=== PATIENT | female | born 1985 | race Caucasian/White ===

== ENCOUNTER 2020-06-23 13:47 | Outpatient (CLI) | payer OTHER, SELFPAY ==
[2020-06-23 14:20] LABS: Hematocrit 35.1 % (37.0-47.0); Hemoglobin 11.7 g/dL (12.0-15.0); Mean Corpuscular HGB Conc 33.3 g/dl (32-36); Mean Corpuscular Hemoglobin 30.9 pg (26-34); Mean Corpuscular Volume 92.6 fl (80-100); Mean Platelet Volume 9.2 fl (7.4-10.4); Platelet Count Result 220 k/mm3 (150-375); Red Blood Count 3.79 M/mm3 (4.2-5.4); Red Cell Distribution Width 13.2 % (11.5-14.5); White Blood Count 7.5 K/mm3 (4.5-10.0)
[2020-06-24 12:01] LABS: Rapid Plasma Reagin Non-Reactive (NonReactive)
== END 2020-06-23 13:48 | disposition home or self-care (01) ==
PROVIDERS: Visit Provider Obstetrics & Gynecology
DX: Z01.812 Encounter for preprocedural laboratory examination (principal); O34.219 Maternal care for unspecified type scar from previous cesarean delivery
CPT/HCPCS: 36415; 85027; 86592; 86850; 86900; 86901

== ENCOUNTER 2020-06-24 10:14 | Inpatient (IN) | payer OTHER, SELFPAY ==
--- NOTE | 2020-06-08 13:58 | PC.NURSE ---
VERIFIED WITH OR SCHEDULE AND PATIENT--C/S ON 06/24/20 AT 1200 PATIENT GIVEN REQUISITION FOR LAB DRAW ON 06/23/20
[2020-06-24] VITALS (46 sets, daily range): BP systolic 79–112; BP diastolic 48–82; PULSE 46–226; RESP 11–22; TEMP 36.2–36.9; O2SAT 98–100; BMI 30.2
[2020-06-24] MEDS: LACTATED RINGERS 1,000 ML 125 ML IV CONT (10:56)
--- NOTE | 2020-06-24 11:00 | LDADM ---
This patient, Saida Zapien, was admitted to Labor/Delivery/Recovery 119 on 06/24/20 at 10:14. Plans for labor, pain management and were discussed with patient. Patient/family oriented to hospital policies and general routines including ID bracelet, bed and alarms, visiting hours, pain management, procedures, bathroom and other care routines, personal items, smoking policy, room service/diet and guest tray routines, security routines, and visiting hours. Patient/Family are encouraged to report perceived risks to care and to ask questions if they do not understand what they are told or what they should do. See OBIX for further documentation.
--- NOTE | 2020-06-24 12:26 | WPDANESEPPF ---
Anes - Initial Pre Proc Eval Procedure: Operation Date: 06/24/20 12:00 Proposed Procedures p Repeat Section - Nickolas Weinberg MD Date/Time: 06/24/20 12:26 Surgeon: Nickolas Weinberg MD Pre Op Diagnosis: c/s Patient Data Age: 35 Gender: F Height: 5 ft 4 in Weight: 80 kg Last Vital Signs Temp 36.9 C 06/24/20 11:23 Pulse 81 06/24/20 11:15 BP 111/71 06/24/20 11:15 Allergies Allergy/AdvReac Type Severity Reaction Status Date / Time No Known Allergies Allergy Unknown Verified 06/08/20 13:38 Home Medications Medication Instructions Recorded Confirmed Type prenat.vits,leon,[id number] 1 tablet PO DAILY 06/08/20 06/08/20 History [ #2] sertraline 25 mg PO DAILY 06/08/20 06/08/20 History Patient hx anesthesia problems: none Family hx anesthesia problems: none PMFSH Past Medical History Medical History Anxiety Family History Family History Other Unknown family medical history Social History Social History Smoking status: Never smoker Substance use: never Spiritual care concerns: No Anes - Eval Final PreProcedure Day of Procedure 06/24/20 12:26 Patient weight: overweight Heart: regular rate and rhythm Lungs: clear to auscultation Airway: Mallampati scale class II Neurological: alert and oriented Last oral intake: >/= 8 hours ASA classification: II Emergent: no Anesthetic plan: proceed Anesthesia type and monitoring: regional spinal and standard monitoring Informed Consent: The patient's anesthetic plan and its attendant risks and benefits were discussed with the patient/family/POA. Questions were solicited and answers provided to the satisfaction of the patient/family/POA.
--- NOTE | 2020-06-24 12:41 | P.HP_ITS ---
H&P: HPI History of Present Illness Date/Time: 06/24/20 12:41 35 y/o at 39 4/7 weeks here for repeat . GBS pos. Chief Complaint: Here for c section Review of Systems Review of Systems: All systems reviewed & are unremarkable except as noted in HPI and below PMFSH Past Medical History Medical History Anxiety Family History Family History Other Unknown family medical history Social History Social History Smoking status: Never smoker Substance use: never Spiritual care concerns: No Meds Home Medications and Allergies Home Medications Medication Instructions Recorded Confirmed Type prenat.vits,leon,wvp-[id number] 1 tablet PO DAILY 06/08/20 06/08/20 History [ #2] sertraline 25 mg PO DAILY 06/08/20 06/08/20 History Allergies Allergy/AdvReac Type Severity Reaction Status Date / Time No Known Allergies Allergy Unknown Verified 06/08/20 13:38 Vital Signs Vital Signs - 24 hr 06/24/20 10:36 06/24/20 10:45 06/24/20 11:01 Temperature Pulse Rate 79 79 84 Blood Pressure 112/71 111/82 101/59 L 06/24/20 11:15 06/24/20 11:23 Temperature 36.9 C Pulse Rate 81 Blood Pressure 111/71 Exam Const: Orientation/consciousness: patient oriented x3 Other: Well- developed, well-nourished female in no acute distress. Neck: Thyroid: thyroid normal Lymphatic: no lymphadenopathy noted (in neck, axilla or inguinal nodes) Resp: Effort & Inspection: normal respiratory effort Auscultation: clear to auscultation bilaterally Cardio: Rate: regular rate Rhythm: regular rhythm Heart sounds: S1 normal heart sound present and S2 normal heart sound present GI: Other: ABD: Soft, nontender, nondistended, gravid. NST good variability. TOCO: no contractions. No guarding or rebound tenderness. No hepatosplenomegaly. : General: Yes no CVA tenderness Other: Cervix closed, thick. Back/Spine/Pelvis: Back: no CVA tenderness Skin: General skin exam: normal color and no rashes or lesions noted Neuro: General: patient oriented x3 Extrem: Other: Extremities: nontender with no edema Psych: Mental Status: mental status grossly normal Affect: normal affect Assessment and Plan Assessment and plan (1) History of delivery: Code(s): Z98.891 - History of uterine scar from previous surgery Status: Acute Assessment and Plan: A: 1) IUP at 39 4/7 weeks 2) Prior , desires repeat. 3) GBS pos. P: She desires repeat . She understands risks of surgery to include risks of anesthesia, risks of pain, infection, bleeding, blood products, thromboembolic phenomena and damage to adjacent structures such as bowel, bladder, ureters, blood vessels and nerves. She understands all these risks and elects to proceed with surgery.
--- NOTE | 2020-06-24 12:46 | WPDHPUPDATE1 ---
History and Physical Update Update Date/Time: 06/24/20 12:46 History and Physical has been reviewed, including an updated exam of the patient. There are NO changes in the patient's condition. Risks, benefits, and alternatives have been discussed and questions answered. Patient agrees to proceed with procedure.
--- NOTE | 2020-06-24 13:52 | PM.OBPRVD ---
OB - Delivery Note Procedure Procedure: Procedures Operation Date: 06/24/20 12:00 <No data on this case meets the specified criteria> Repeat low transverse delivery Delivery monitor: external FHT and external uterine Specimen: Yes (cord blood) Quantitative Blood Loss (ml): 650 Anesthesia type: Spinal Disposition: PACU Complications: None Narrative: The patient was taken to the operating room where she was prepared and draped in the usual sterile fashion in dorsal supine position with a leftward tilt. She received cefazolin preoperatively. Spinal anesthesia was found to be adequate. A Pfannenstiel skin incision was made along the previous scar line and was carried through to the underlying layer of the fascia. The fascia was incised in the midline and the incision was extended laterally. The fascia was dissected free of the underlying rectus muscles. The rectus muscles were in the midline. The peritoneum was identified, tented up and entered sharply. The peritoneal incision was extended superiorly and inferiorly with good visualization of the bladder. The bladder blade was placed. The vesicouterine peritoneum was identified, tented up and entered sharply. The incision was extended laterally and the bladder flap was developed. The bladder blade was replaced. The uterus was then incised sharply in a transverse fashion along the lower uterine segment. The incision was extended laterally. The 's head was delivered atraumatically to the sterile field, followed by the body. The nose and mouth were bulb suctioned. After a delay, the cord was clamped and cut. The was handed off the field. Cord blood was collected. The placenta was removed manually and was passed off the field. The uterus was exteriorized and cleared of all clots and debris. The uterine incision was reapproximated using 0 Monocryl in a running, locked fashion. Excellent hemostasis resulted as did excellent reapproximation of the normal anatomy. The uterus, tubes and ovaries were all unremarkable. The uterus was returned the abdomen. The pelvis was irrigated copiously with warmed normal saline. Rigorous hemostasis was assured. The fascial layer was reapproximated using 0 Vicryl in a running fashion. The skin was closed with a running, subcuticular stitch of 4 0 Vicryl. Dermaflex was applied externally. Sponge, lap, needle and instrument counts were correct. The patient was taken to the recovery room in stable condition. The infant went to the nursery in stable condition. I was present and scrubbed the entire procedure. [facility] Baby Date of : 06/24/20 Time of : 13:24 Weeks of gestation at delivery: 39 Infant gender: Male Weight (pounds): 7 Weight (ounces): 13 presentation: vertex Placenta delivery description: Manual Removal and Normal Configuration cord vessel description: 3 Vessels and Delayed Cord Clamping score one minute: 9 score five minutes: 9
[2020-06-24] MEDS: OXYTOCIN 30 UNITS/NS 500 ML 30 UNITS/500 ML BAG 125 UNITS IV CONT (14:12)
[2020-06-24] MEDS: ONDANSETRON INJ 4 MG/2 ML VIAL IV PUSH (14:38)
[2020-06-24] MEDS: MORPHINE SULFATE (*CRX) 2 MG/ML INJ 3 MG IV PUSH (15:23)
--- NOTE | 2020-06-24 15:30 | PM.OBDSVD ---
DS: Admitting Diagnosis Admitting Diagnosis Admitting Diagnosis: IUP at 39 4/7 weeks Prior GBS colonization DS: Discharge Diagnosis Discharge Diagnosis (1) History of delivery: Code(s): Z98.891 - History of uterine scar from previous surgery Status: Acute (2) GBS (group B Streptococcus carrier), +RV culture, currently : Code(s): O99.820 - Streptococcus B carrier state complicating Status: Acute OB - DS: Summary OB Procedures : None OB Procedures Intrapartum: OB Procedures: : None Peripartum Data Procedures: Procedures Operation Date: 06/24/20 12:00 Actual Procedures Side Surgeon p Repeat Section Not Applicable Nickolas eWinberg MD Discharge Plan Discharge Attending physician on discharge: Nickolas Weinberg Consulting providers: Rodo Sosa Discharging Clinician: Nickolas Weinberg Patient Disposition: Home, Self-Care Activity: may shower, may drive after 2 weeks and pelvic rest Diet: regular Wound Care Instructions: incision open to air Discharge Instructions: Education: Mom and Baby Guide Given to: Mother Follow-Up: Call your delivering provider's office for an appointment to be seen in: 4 Weeks Mom and baby should come to the [facility] for the follow-up appointment. Appointment Date/Time: Saturday, June 27, 2020 at 9:00 a.m. What to expect at your follow-up visit: Blood Pressure Check Physical Assessment Call [phone] if you are unable to keep your appointment time. BREAST CARE: * Wear a snug supportive bra. * For engorgement discomfort: Breast Feeding: * Apply warm moist washcloths * Express milk as needed to relieve engorgement * Wear loose clothing * For sore nipples: * Identify correct latch-on * Apply warm moist washcloths before and after nursing * Air dry nipples after nursing * May apply Lansinoh cream to nipples ABDOMINAL INCISION: (if applicable) * Allow incision to air dry * Do NOT use lotions for powders on your incision * When showering, allow soap and water to run over the incision, but do not wash incision EPISIOTOMY/PERINEAL CARE: * Change your pad frequently throughout the day * You may take sitz baths several times a day (fill your bathtub with warm water and soak for 20 minutes.) Do NOT bathe in the water * No tub baths until seen by your physician - You may shower ACTIVITY: * Rest as much as possible. * Do not exercise or lift anything heavier than your baby (such as laundry or other children.) * Avoid stairs or driving as much as possible. * Do not put anything into the vagina. No douching, tampons, or sexual activity until seen by physician. NOTIFY PHYSICIAN IF YOU HAVE ANY QUESTIONS OR IF ANY OF THE FOLLOWING SYMPTOMS OCCUR: * If your incision becomes red, swollen, or more painful than what you have experienced in the hospital. * If your vaginal bleeding becomes foul smelling. * If your vaginal bleeding becomes more heavy than a period or if your bleeding changes from pink to bright red. However, you may pass an occasional walnut-sized clot once or twice for the first week . * If you experience a sharp, shooting pain in you calves. * If you discover a hard, reddened area on your breast or if you experience flu-like symptoms. DIET: * Eat regular, well-balanced meals. * Drink plenty of fluids daily. If , drink to thirst. Call or return if temperature above 100.4? F, increased abdominal pain, increased vaginal bleeding or any new problems. Stand Alone Forms: General Discharge Information Follow-up/Referrals: Nickolas Weinberg MD [Physician] - 4 Weeks Discharge Medications: New ibuprofen 600 mg tablet 600 mg PO Q6H PRN (Reason: cramps) Qty: 30 RF: 0 ferrous sulfate 325 mg (65 mg iron) tablet
--- NOTE | 2020-06-24 16:21 | PC.NURSE ---
Patient transferred to post room #287 via stretcher. Support person present. Oriented to unit, room, information board, rooming in, admission packet and security measures. Patient verbalizes understanding.
[2020-06-24] MEDS: diphenhydrAMINE HCl INJ 50 MG/ML VIAL 25 MG IV PUSH (17:14)
[2020-06-24] MEDS: KETOROLAC 30 MG/ML VIAL (*BKC) IV PUSH (19:52)
[2020-06-24] MEDS: DEXTROSE 5%/0.45% SOD CHL 1,000 ML 125 ML IV CONT (19:53)
[2020-06-24] MEDS: HYDROcodone/acetaminophen (*CRX) 5-325 MG TABLET 1 TAB PO (19:53)
[2020-06-24] MEDS: SIMETHICONE 80 MG TAB.CHEW PO (19:53)
[2020-06-24] MEDS: SERTRALINE HCL 25 MG TABLET PO (21:54)
[2020-06-25] MEDS: IBUPROFEN 600 MG TABLET PO ×4 (01:45→19:56)
[2020-06-25] MEDS: HYDROcodone/acetaminophen (*CRX) 10-325 MG TABLET 1 TAB PO ×4 (01:46→19:57)
[2020-06-25 03:43] VITALS: BP 104/47; PULSE 72; RESP 18; TEMP 36.8; O2SAT 98
[2020-06-25 05:39] LABS: Basophils Percent Auto 0.3 % (0.2-1.2); Eosinophils Percent Auto 0.5 % (0-4.4); Hematocrit 27.3 % (37.0-47.0); Hemoglobin 8.8 g/dL (12.0-15.0); Immature Granulocyte Absolute 0.04 K/mm3 (0.00-0.031); Immature Granulocyte Percent A 0.5 % (0-0.5); Lymphocytes Absolute Auto 1.43 K/mm3 (0.9-3.2); Lymphocytes Percent Auto 16.3 % (18.3-44.2); Mean Corpuscular HGB Conc 32.2 g/dl (32-36); Mean Corpuscular Hemoglobin 29.5 pg (26-34); Mean Corpuscular Volume 91.6 fl (80-100); Mean Platelet Volume 9.9 fl (7.4-10.4); Monocytes Absolute Auto 0.4 K/mm3 (0.1-0.6); Monocytes Percent Auto 4.5 % (2.6-8.5); Neutrophils Absolute Auto 6.8 K/mm3 (1.3-6.7); Neutrophils Percent Auto 77.9 % (45.5-73.1); Platelet Count Result 187 k/mm3 (150-375); Red Blood Count 2.98 M/mm3 (4.2-5.4); Red Cell Distribution Width 13.2 % (11.5-14.5); White Blood Count 8.8 K/mm3 (4.5-10.0)
--- NOTE | 2020-06-25 07:46 | WPDANLDPN2 ---
Anes-Prog Note L&D Date/Time: 06/25/20 07:46 Comfortable throughout: section Neuraxial method: spinal Epidural/Spinal procedure site: clean & non-tender Neuro status: Neuro function grossly intact. Cardiovascular status: normal Respiratory status: normal Airway patency: baseline Mental status: baseline Post-Op hydration status: normal Vital Signs: Last Vital Signs Temp 36.8 C 06/25/20 03:43 Pulse 72 06/25/20 03:43 Resp 18 06/25/20 03:43 BP 104/47 L 06/25/20 03:43 Pulse Ox 98 06/25/20 03:43 Pain score (VAS): 3 I/O: Intake & Output 06/24/20 06/24/20 06/25/20 15:59 23:59 07:59 Intake Total 730 2500 Output Total 270 1850 Balance 460 650 Post-procedural complaints: none Patient feedback: Patient satisfied with anesthetic care.
--- NOTE | 2020-06-25 07:47 | WPDANLDNPN2 ---
Anes-Prog Note L&D-Neuraxial Date/Time: 06/25/20 07:47 Neuraxial medications: intrathecal PF morphine Opiod-related complaints: none Patient feedback: Patient satisfied with post-operative pain management.
[2020-06-25 08:00] VITALS: BP 91/62; PULSE 72; RESP 18; TEMP 37
[2020-06-25] MEDS: DOCUSATE SODIUM 100 MG CAPSULE PO ×2 (08:44→16:50)
[2020-06-25] MEDS: SIMETHICONE 80 MG TAB.CHEW PO ×5 (08:44→19:55)
[2020-06-25] MEDS: MULTIVIT/MIN/PREN/FOL AC/IRON TABLET 1 TAB PO (08:47)
[2020-06-25 12:00] VITALS: BP 103/60; PULSE 81; RESP 18; TEMP 36.8
--- NOTE | 2020-06-25 12:38 | PM.OBPNVD ---
OB - PN: Subj Subjective Date/time seen: 06/25/20 12:38 Narrative: Pain OK. Tolerating diet. Would like circumcision for son. OB - PN: Obj Data Labs CBC & Chem 7: 06/25/20 03:19 Labs: Laboratory Results - last 24 hr 06/25/20 03:19 WBC 8.8 RBC 2.98 L Hgb 8.8 L Hct 27.3 L MCV 91.6 MCH 29.5 MCHC 32.2 RDW 13.2 Plt Count 187 MPV 9.9 Immature Gran % (Auto) 0.5 Neut % (Auto) 77.9 H Lymph % (Auto) 16.3 L Jackson % (Auto) 4.5 Eos % (Auto) 0.5 Baso % (Auto) 0.3 Lymph # (Auto) 1.43 Jackson # (Auto) 0.4 Eos # (Auto) 0.0 Baso # (Auto) 0.0 Abs Immat Gran (auto) 0.04 H Absolute Neuts (auto) 6.8 H Absolute Nucleated RBC 0.0 Nucleated RBC % 0.0 OB - PN A/P Plan Comments: A: POD#1, doing well. P: Routine care. Reviewed circ. Exam Narrative: Exam Narrative: AVSS I/O OK ABD soft, nontender, fundus firm. Incision c/d/i. EXT nontender
[2020-06-25] MEDS: POLYSACCHARIDE IRON COMPLEX 150 MG CAPSULE PO (16:50)
[2020-06-25 18:20] VITALS: RESP 18; O2SAT 100
[2020-06-25] MEDS: SERTRALINE HCL 25 MG TABLET PO (19:55)
[2020-06-25] MEDS: LANOLIN (LANSINOH) 7.5 GM CREAM 1 APPLIC TOPICAL (19:56)
[2020-06-25 20:00] VITALS: BP 108/64; PULSE 79; RESP 18; TEMP 37.1; O2SAT 100
[2020-06-26] MEDS: IBUPROFEN 600 MG TABLET PO ×2 (02:09→08:58)
[2020-06-26] MEDS: HYDROcodone/acetaminophen (*CRX) 10-325 MG TABLET 1 TAB PO ×3 (02:10→08:58)
[2020-06-26] MEDS: SIMETHICONE 80 MG TAB.CHEW PO ×3 (02:12→08:59)
[2020-06-26 07:00] VITALS: PULSE 79; RESP 18; O2SAT 100
--- NOTE | 2020-06-26 07:22 | P.DS_ITS ---
DS: Admitting Diagnosis Admitting Diagnosis Admitting Diagnosis: repeat section at term OB - DS: Summary OB Procedures : None OB Procedures Intrapartum: OB Procedures: : None Peripartum Data Infant Delivery Method: Section Procedures: Procedures Operation Date: 06/24/20 12:00 Actual Procedures Side Surgeon p Repeat Section Not Applicable Nickolas Weinberg MD complications: none Status at Discharge Functional status at discharge: independent ambulation Overall status at discharge: patient is progressing back to baseline Time Spent with Patient Time attestation: Total time spent providing and/or coordinating discharge services: Time spent: Less than 30 minutes Exam Const: General: comfortable and no acute distress Resp: Effort & Inspection: normal respiratory effort Auscultation: clear to auscultation bilaterally Cardio: Rate: regular rate GI: Inspection: non-distended GI Palp: Yes Soft to palpation, No Firmness to palpation present (GI), Yes Tenderness to palpation present (GI) (mild tenderness over incision ) and No Guarding due to palpation present (GI) Auscultation: normal bowel sounds Psych: Appearance: grossly normal Mental Status: mental status grossly normal Discharge Plan Discharge Attending physician on discharge: Nickolas Weinberg Discharging Clinician: Nickolas Weinberg Patient Disposition: Home, Self-Care Activity: may shower, may drive after 2 weeks and pelvic rest Diet: regular Wound Care Instructions: incision open to air Discharge Instructions: Call or return if temperature above 100.4? F, increased abdominal pain, increased vaginal bleeding or any new problems. Stand Alone Forms: General Discharge Information Follow-up/Referrals: Nickolas Weinberg MD [Physician] - 4 Weeks Discharge Medications: New ibuprofen 600 mg tablet 600 mg PO Q6H PRN (Reason: cramps) Qty: 30 RF: 0 ferrous sulfate 325 mg (65 mg iron) tablet 325 mg PO DAILY Qty: 30 RF: 0 hydrocodone-acetaminophen 5-325 mg tablet 1 - 2 tablet PO Q6H PRN (Reason: pain) Qty: 30 RF: 0 Continued sertraline 25 mg Tablet 25 mg PO DAILY RF: 0 #2 Tablet 1 tablet PO DAILY RF: 0 Date of admission: 06/24/20 10:14 Primary Care Provider: PHYSICIAN,[facility]IST Admitting Provider: Nickolas Weinberg Attending physician on admission: Nickolas Weinberg Condition: Stable
[2020-06-26 08:50] VITALS: BP 104/64; PULSE 61; RESP 18; TEMP 37.2; O2SAT 98
[2020-06-26] MEDS: MULTIVIT/MIN/PREN/FOL AC/IRON TABLET 1 TAB PO (08:58)
[2020-06-26] MEDS: DOCUSATE SODIUM 100 MG CAPSULE PO (08:58)
[2020-06-26] MEDS: POLYSACCHARIDE IRON COMPLEX 150 MG CAPSULE PO (08:58)
--- NOTE | 2020-06-26 09:31 | PC.NURSE ---
Patient viewed the discharge video Mother & Baby Care, The First Two Weeks . Patient was given the opportunity and encouraged to ask questions. Patient verbalized understanding of information shared and has been given the mother/baby guide for home reference.
--- NOTE | 2020-06-26 09:35 | PC.NURSE ---
Mother called out for observation of feeding. Consulted with patient, mother reports infant has fed well since . Mother has slight nipple discomfort with latch during first part of the feeding that quickly resolves. Reviewed nipple care of lanolin, warm compresses several times per day as needed. Observed infant appears to have a slightly tight frenulum. Reviewed feeding cues, frequencies, duration of feedings, feeding elimination flow sheet, and signs of adequate intake. Demonstrated stimulation techniques to wake for feeding. Assisted with to breast. Reviewed positioning/alignment in cross cradle, holding breast in U hold and guided asymmetrical latch on. Frenulum does not appear to effect latch was able to latch within a few attempts. nursed eagerly, with steady draws and frequent swallowing noted. Reviewed signs of a correct latch, effective nursing and suck swallow ratio. was able to maintain latch. was on and off several times before settling into a steady nursing pattern. Mother reported tenderness at times, had slipped to shallow latch. Demonstrated how to adjust latch more deeply while feeding. Mother quickly reports she can feel infant is latched more deeply and has minimal tenderness. Suggested to stimulate infant while feeding to keep awake and nursing effectively for increased stimulation and increased intake. Instructed mother to call out for RN assistance if she is unable to latch infant for feeding or she has discomfort with nursing. Mother is able to independently latch infant with appropriate positioning/alignment. She denies any nipple discomfort, is feeding as required and waking infant to feed if needed. has had at least 8 effective feedings in the past 24 hours, and is currently meeting outcomes for weight, output, jaundice and feeding frequencies. Mother states she feels confident to continue effective at home. Reviewed transition to breast milk, signs of adequate intake, and engorgement/relief. Instructed to call ICP if intake/output less than required. Reviewed regular medications mother is taking. Information provided per Guerita. Reviewed community resources on the [employer] website and in the Mom/Baby guide. Information on outpatient services provided. Mother has no further questions at this time.
[2020-06-27 09:05] VITALS: BP 116/69; PULSE 74; RESP 20; TEMP 36.9; O2SAT 99
== END 2020-06-26 11:13 | disposition home or self-care (01) | DRG 540 ==
LOC: ANHLDR 15:32 → ANHOB2 06-26 07:41 → ANHLDR 06-29 13:36 → ANHOB2 06-29 13:36
PROVIDERS: Admitting Provider Obstetrics & Gynecology; Visit Provider Student in an Organized Health Care Education/Training Program
PROC: 10D00Z1 Extraction of Products of Conception, Low, Open Approach (ICD-10-PCS; CPT 59514; principal; 2020-06-24 12:00)
DX: O34.211 Maternal care for low transverse scar from previous cesarean delivery (principal); Z37.0 Single live birth; Z3A.39 39 weeks gestation of pregnancy; O99.824 Streptococcus B carrier state complicating childbirth; O99.344 Other mental disorders complicating childbirth; F41.9 Anxiety disorder, unspecified
CPT/HCPCS: 36415; 85025; A9270; J0131; J1200; J1885; J2270; J2274; J2370; J2405; J2590; J7120